=== PATIENT | female | born 1980 | race Caucasian/White ===

== ENCOUNTER → 2016-06-26 | Emergency (ER) | payer BC, OTHER ==
[~2016-06-26] MED LIST: KETOROLAC TROMETHAMINE 30 MG/ML VIAL IV ONE; KETOROLAC TROMETHAMINE 30 MG/ML VIAL ONE; METOCLOPRAMIDE HCL 5 MG/ML VIAL IV ONE; METOCLOPRAMIDE HCL 5 MG/ML VIAL ONE; NORMAL SALINE 1,000 ML IV ONE; diphenhydrAMINE HCL 50 MG/ML VIAL IV ONE; diphenhydrAMINE HCL 50 MG/ML VIAL ONE
[2016-06-26 16:42] VITALS: BP 133/92
--- OUTSIDE RECORDS SUMMARY | 2016-06-26 23:05 | XMS REPORT | Continuity of Care Document ---
:1980 Author Organization [facility] ([facility]) Address [address] [place] [address] Phone [phone] Care Team Providers Name Role Phone Ananth Reaves Primary Care Provider [phone] Source Comments This disclosure is being made pursuant to the Care Everywhere program, applicable federal and state laws, and may not contain all informaitonavailable regarding this patient.[facility] ([facility]) Active Allergies and Adverse Reactions No Known Allergies Current Medications Prescription Sig. Disp. Refills Start Date End Date Status levonorgestrel (MIRENA) Use 1 Intra Active 20 mcg/day intrauterine Uterine Device device in your uterus continuous. naproxen sodium 550 mg 12/22/2015 Active tablet topiramate 100 mg tablet 12/23/2015 Active SERTraline 100 mg tablet 12/23/2015 Active QUEtiapine 25 mg tablet 12/23/2015 Active metoPROLol succinate 25 Take 12.5 mg AM 45 tablet 1 02/06/2016 Active mg XL tablet and 25 mg PM. 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 Respiratory Rate 22 04/30/2015 6:50 AM MANAGER MARK[employer] IN[employer]LL[employer] Height 1.575 m (5' 2") 01/18/2016 10:30 AM CDT Weight 126.1 kg (278 lb) 01/18/2016 10:30 AM CDT Body Mass Index 50.83 01/18/2016 10:30 AM CDT Oxygen Saturation 98% 04/30/2015 2:53 PM [employer]NAGER [employer] Plan of Care Health Maintenance Due Date Last Done Comments Hepatitis B Vaccine (1 of 3 - Primary Series) 1980 Tdap Vaccine 01/11/1991 Lipid Disorder Screening 01/11/1998 MMR Vaccine 01/11/1998 Td Vaccine 01/11/1998 Varicella Vaccine (1 of 2 - Adult - No Evidence of 01/11/1998 Immunity) Cervical Cancer Screening 01/11/2010 Influenza Vaccine: Seasonal Completed 01/09/2016 Results from Last 3 Months Not on file
== END ==
LOC: ER 16:27
DX: G43.901 Migraine, unspecified, not intractable, with status migrainosus (principal)

== ENCOUNTER 2016-08-04 04:33 | Emergency (ER) | payer OTHER ==
[2016-08-04 04:48] VITALS: BP 153/98
[2016-08-04] MEDS ORDERED: KETOROLAC TROMETHAMINE 30 MG/ML VIAL IV ONE (05:23)
[2016-08-04] MEDS ORDERED: KETOROLAC TROMETHAMINE 60 MG/2 ML VIAL IM ONE ×2 (05:58→06:16)
[2016-08-04 06:24] LABS: Urine Bilirubin 1 mg/dl (NEGATIVE); Urine Blood Negative /ul (NEGATIVE); Urine Ketone Negative (NEGATIVE); Urine Nitrite Negative (NEGATIVE); Urine Protein Negative (NEGATIVE); Urine Urobilinogen Normal (NORMAL)
--- OUTSIDE RECORDS SUMMARY | 2016-08-04 06:26 | XMS REPORT | Continuity of Care Document ---
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
[2016-08-04 06:44] LABS: Urine Appearance Slightly Cloudy; Urine Bacteria TRACE; Urine Color Dark Yellow; Urine RBC None Seen /hpf (0-5); Urine WBC TRACE /hpf (0-5)
[2016-08-04] MEDS ORDERED: HYDROmorphone HCL 1 MG/ML DISP.SYRIN IM ONE (06:48)
[2016-08-04] MEDS ORDERED: ONDANSETRON HCL/PF 2 MG/ML VIAL IM ONE (06:48)
[2016-08-04] MEDS ORDERED: HYDROmorphone HCL 1 MG/ML DISP.SYRIN ONE (06:51)
[2016-08-04] MEDS ORDERED: ONDANSETRON HCL/PF 2 MG/ML VIAL ONE (06:52)
--- NOTE | 2016-08-04 06:54 | ERNOTE ---
Abdominal HPI - General Chief Complaint: Abdominal Pain Time Seen by Provider: 08/04/16 04:58 Source: patient Exam Limitations: no limitations - Immun/Allergies/Home Medications Immunizatons: IMMUNIZATION HX Immunizations Up to Date Yes History of Influenza Vaccine Yes Hx Pneumococcal Vaccination No Allergies/Adverse Reactions: Allergies Milk Containing Products Adverse Reaction (Mild, Verified 06/26/16 16:43) Vomiting and diarhea. Home Medications: HOME MEDICATIONS HYDROcodone/ACETAMINOPHEN [[place] 5-325 Tablet] 1 each PO QID 07/28/15 [Last Taken Unknown] Levonorgestrel [Mirena] 1 each IY Q365D 07/28/15 [Last Taken Unknown] Metoprolol Succinate 12.5 mg PO AC 07/28/15 [Last Taken Unknown] Metoprolol Succinate 25 mg PO HS 07/28/15 [Last Taken Unknown] Phentermine HCl [Adipex-P] 37.5 mg PO DAILY 07/28/15 [Last Taken Unknown] Topiramate [Topamax] 100 mg PO BID 07/28/15 [Last Taken Unknown] buPROPion HCL [Wellbutrin SR, Zyban] 150 mg PO BID 07/28/15 [Last Taken Unknown] risperiDONE [Risperdal] 1 mg PO HS 07/28/15 [Last Taken Unknown] Phenazopyridine HCl [Pyridium] 200 mg PO TID #10 tablet 08/04/16 [Last Taken Unknown] Sulfamethoxazole/Trimethoprim [Bactrim Ds] 1 tab PO BID #20 tab 08/04/16 [Last Taken Unknown] - History of Present Illness Narrative: severe suprapubic pain and inability to urinate. no fevers or chills. Symptoms began at 1 am and she has taken nothing for pain. No nausea or vomiting reported Review of Systems - Review of Systems Constitutional: Present: no symptoms reported EYE: Present: no symptoms reported ENT: Present: no symptoms reported Respiratory: Present: no symptoms reported Cardiology: Present: no symptoms reported Gastrointestinal/Abdominal: Present: See HPI Genitourinary: Present: See HPI Musculoskeletal: Present: no symptoms reported Skin: Present: no symptoms reported - Patient's Past Medical History Patient History - Medical: Anxiety, Depression, GERD, Migraines, Seizures, UTI'S Patient History - Cardiac/Respiratory: No pertinent hx Patient History - Cancer: No Hx of Cancer Patient History - Surgical Procedures: Other Patient History - Other: None - Family History Mother Family History - Medical: No pertinent hx, History Unknown Family History - Cardiac/Respiratory: No pertinent hx Father Family History - Medical: , No pertinent hx Family History - Cardiac/Respiratory: No pertinent hx, Myocardial Infarction - Social History Living Situations: alone Abuse History: No History of abuse Psych History: Hx of Anxiety, Hx of Depression Smoking Status: Former smoker Have you smoked in the past 12 months: No Do you dip or chew tobacco: No Alcohol Use: none Drug Use: none - Immunizations Immunizations Up to Date: Yes Hx Pneumococcal Vaccination: No History of Influenza Vaccine: Yes Physical Exam - Physical Exam General Appearance: Present: wd/wn, alert, moderate distress - pt is in distress due to suprapubic pain Neck: Present: normal inspection Respiratory: Present: no respiratory distress, normal breath sounds, no accessory muscle use, chest nontender, lungs clear Cardiovascular/Chest: Present: regular rate, rhythm, no murmur, normal peripheral pulses Gastrointestinal/Abdominal: Present: normal bowel sounds, soft, other - tender in the suprapubic region Back Exam: Present: normal inspection Extremity Exam: Present: normal inspection, normal range of motion ED Progress - Results and Orders Patient's Lab Results:: I have reviewed the patient's lab results. - Vital Signs Patient's Vital Signs:: I have reviewed the patient's vital signs. Vital Signs: Vital Signs 08/04/16 04:33 Temperature 36.1 C L Pulse Rate 68 Respiratory 18 Rate Blood Pressure 153/98 O2 Sat by Pulse 98 Oximetry - Progress/Reassessment Chief Complaint: Abdominal Pain Plan - Plan Plan: Will treat for UTI Departure - Departure Clinical Impression: UTI (urinary tract infection) Qualifiers: Urinary tract infection type: acute cystitis Hematuria presence: without hematuria Qualified Code(s): N30.00 - Acute cystitis without hematuria Disposition: Home self-care Condition: Stable Instructions: Dysuria Referrals: Ananth Ledesma MD [Primary Care Provider] - Prescriptions: Phenazopyridine HCl [Pyridium] 200 mg PO TID #10 tablet Sulfamethoxazole/Trimethoprim [Bactrim Ds] 1 tab PO BID #20 tab
[2016-08-04] MEDS ORDERED: HEPARIN SODIUM,PORCINE 10,000 UNITS/ML VIAL ONE (08:21)
[2016-08-04] MEDS ORDERED: LIDOCAINE HCL 1,000 MG/50 ML VIAL ONE (08:21)
== END 2016-08-04 07:22 | disposition home or self-care (01) ==
LOC: ER 04:33
PROC: 3E1K78Z Irrigation of Genitourinary Tract using Irrigating Substance, Via Natural or Artificial Opening (ICD-10-PCS; principal; 2016-08-04)
DX: N30.00 Acute cystitis without hematuria (principal); Z87.440 Personal history of urinary (tract) infections; Z87.891 Personal history of nicotine dependence

== ENCOUNTER 2016-08-05 12:19 | Inpatient (IN) | payer BC, OTHER ==
[2016-08-05] MEDS ORDERED: MORPHINE SULFATE 4 MG/ML SYRG IV ONE ×3 (12:49→16:00)
[2016-08-05] MEDS ORDERED: NORMAL SALINE 1,000 ML IV ONE (12:50)
[2016-08-05] MEDS ORDERED: MORPHINE SULFATE 4 MG/ML SYRG ONE ×3 (12:54→16:05)
--- OUTSIDE RECORDS SUMMARY | 2016-08-05 12:59 | XMS REPORT | Continuity of Care Document ---
:1980 Author Organization [facility] ([facility]) Address [address] [place] [address] Phone [phone] Care Team Providers Name Role Phone Ananth Reaves Primary Care Provider [phone] Source Comments This disclosure is being made pursuant to the Care Everywhere program, applicable federal and state laws, and may not contain all informaitonavailable regarding this patient.[facility] ([facility]) Active Allergies and Adverse Reactions No Known [...] 36.7 C (98.1 F) 04/30/2015 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
[2016-08-05 13:26] LABS: Hematocrit 37.3 % (37.0-47.0); Mean Cell Volume 86.1 fl (78-100); Mean Corpuscular Hemoglobin 27.7 pg (27-31); Mean Corpuscular Hgb Conc 32.2 g/dl (32-36); Mean Platelet Volume 10.8 fl (6.0-9.5); Neutrophil # 10.8 K/mm3 (1.3-6.0); Neutrophil % 78.4 % (42-75.0); Platelet Count 254 K/mm3 (150-450); Red Blood Count 4.33 M/mm3 (4.2-5.4); Red Cell Distribution Width 15.1 % (11.5-14.0); White Blood Count 13.7 K/mm3 (4.0-10.5)
[2016-08-05 13:40] LABS: Albumin * 2.8 gm/dl (3.4-5.0); Anion Gap 15.5 mmol/L (6.8-13.8); BUN/Creatinine Ratio 9.3 (9.0-21.6); Bilirubin, Total 0.5 mg/dL (0.0-1.1); Ca. Corrected For Albumin 8.5 mg/dL (8.4-10.2); Calcium * 7.9 mg/dL (7.9-10.9); Carbon Dioxide 20.9 mmol/L (24-32.6); Potassium 3.4 mmol/L (3.4-4.6); Total Protein 6.7 gm/dL (6.2-8.2)
[2016-08-05] MEDS ORDERED: DIATRIZOATE MEGLUMINE, SODIUM 30 ML BTL PO ONE (13:43)
[2016-08-05 14:08] LABS: Urine Appearance Slightly Cloudy; Urine Color Yellow
[2016-08-05 14:09] LABS: Urine Bilirubin Negative (NEGATIVE); Urine Blood 10 /ul (NEGATIVE); Urine Ketone 15 mg/dL (NEGATIVE); Urine Nitrite Negative (NEGATIVE); Urine Protein 15 mg/dL (NEGATIVE); Urine Specific Gravity 1.015 SP.GR. (1.005-1.010); Urine Urobilinogen Normal (NORMAL)
[2016-08-05 14:11] LABS: Urine Bacteria 4+; Urine RBC 0-5 /hpf (0-5)
[2016-08-05 14:12] LABS: Urine Hyaline Cast 0-5 /LPF
[2016-08-05] MEDS ORDERED: DIATRIZOATE MEGLUMINE, SODIUM 30 ML BTL ONE (14:23)
[2016-08-05] MEDS ORDERED: NORMAL SALINE 1,000 ML IV PRN (17:18)
--- OUTSIDE RECORDS SUMMARY | 2016-08-05 18:42 | XMS REPORT | Continuity of Care Document ---
:1980 Author Organization [facility] ([facility]) Address [address] [place] [address] Phone [phone] Care Team Providers Name Role Phone Ananth Reaves Primary Care Provider [phone] Source Comments This disclosure is being made pursuant to the Care Everywhere program, applicable federal and state laws, and may not contain all informaitonavailable regarding this patient.[facility] ([facility]) Active Allergies and Adverse Reactions [...] 36.7 C (98.1 F) 04/30/2015 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
--- NOTE | 2016-08-05 18:43 | ERNOTE ---
Abdominal HPI - Narrative Date of Service: 08/05/16 - General Chief Complaint: Abdominal Pain Time Seen by Provider: 08/05/16 12:42 Source: patient Exam Limitations: no limitations - Immun/Allergies/Home Medications Immunizatons: IMMUNIZATION HX Immunizations Up to Date Yes History of Influenza Vaccine Yes Hx Pneumococcal Vaccination No Allergies/Adverse Reactions: Allergies Milk Containing Products Adverse Reaction (Mild, Verified 08/05/16 12:30) Vomiting and diarhea. Home Medications: HOME MEDICATIONS HYDROcodone/ACETAMINOPHEN [[place] 5-325 Tablet] 1 each PO QID 07/28/15 [Last Taken Unknown] Levonorgestrel [Mirena] 1 each IY Q365D 07/28/15 [Last Taken Unknown] Metoprolol Succinate 12.5 mg PO AC 07/28/15 [Last Taken Unknown] Metoprolol Succinate 25 mg PO HS 07/28/15 [Last Taken Unknown] Topiramate [Topamax] 100 mg PO BID 07/28/15 [Last Taken Unknown] buPROPion HCL [Wellbutrin SR, Zyban] 150 mg PO BID 07/28/15 [Last Taken Unknown] risperiDONE [Risperdal] 1 mg PO HS 07/28/15 [Last Taken Unknown] Phenazopyridine HCl [Pyridium] 200 mg PO TID #10 tablet 08/04/16 [Last Taken Unknown] - History of Present Illness Narrative: Abdominal pain. Patient was seen here yesterday for low abdominal pain. She has possible Hx of interstitial cystitis and has benefited from bladder instillations. She had one yesterday but has not had any relief. Non-bloody diarrhea noted. Now abdominal pain has moved up to whole abdomen. Severe in nature. Worse with movement. No vomiting. Chills. No CP or SOB. Constant pain. Timing: constant Quality: cramping, sharpness Activities at Onset: none Modifying Factors - (Improves): Present: other - nothing Modifying Factors - (Worsens): Present: movement Associated Symptoms: Absent: headache, vomiting, shortness of breath Prior Treatment: Present: recently seen Review of Systems - Review of Systems Constitutional: Present: chills. Absent: fever Respiratory: Absent: shortness of breath Cardiology: Absent: chest pain Gastrointestinal/Abdominal: Present: See HPI Genitourinary: Present: See HPI Neurological: Absent: headache All Other Systems: All systems neg except as marked - Patient's Past Medical History Patient History - Medical: Anxiety, Depression, GERD, Migraines, Seizures, UTI'S Patient History - Cardiac/Respiratory: No pertinent hx Patient History - Cancer: No Hx of Cancer Patient History - Surgical Procedures: Other Patient History - Other: None - Family History Mother Family History - Medical: No pertinent hx, History Unknown Family History - Cardiac/Respiratory: No pertinent hx Father Family History - Medical: , No pertinent hx Family History - Cardiac/Respiratory: No pertinent hx, Myocardial Infarction - Social History Living Situations: home Abuse History: No History of abuse Psych History: Hx of Anxiety, Hx of Depression Alcohol Use: none Drug Use: none - Immunizations Immunizations Up to Date: Yes Hx Pneumococcal Vaccination: No History of Influenza Vaccine: Yes Physical Exam - Physical Exam General Appearance: Present: alert, no apparent distress Eye Exam: Normal inspection: bilateral, PERRL: bilateral Ears, Nose, Throat: Present: normal ENT inspection Neck: Present: normal inspection Respiratory: Present: no respiratory distress, normal breath sounds, no accessory muscle use, lungs clear Cardiovascular/Chest: Present: tachycardia Gastrointestinal/Abdominal: Present: normal bowel sounds, soft, tenderness, other - Diffuse abdominal tenderness but primarily mid-abdominal. No guarding or rebound. No peritoneal signs Back Exam: Absent: CVA tenderness (R), CVA tenderness (L) Extremity Exam: Present: normal inspection Neurological Exam: Present: alert, no motor/sensory deficits Skin Exam: Present: normal color. Absent: skin rash ED Progress - Results and Orders Patient's Lab Results:: I have reviewed the patient's lab results. - Vital Signs Patient's Vital Signs:: I have reviewed the patient's vital signs. Vital Signs: Vital Signs 08/05/16 08/05/16 08/05/16 12:26 13:08 13:47 Temperature 35.3 C L 37.0 C 36.1 C L Pulse Rate 148 H 110 H 113 H Respiratory 12 13 Rate Blood Pressure 116/80 92/56 102/47 O2 Sat by Pulse 97 99 99 Oximetry 08/05/16 08/05/16 08/05/16 14:21 15:05 15:33 Temperature 37.3 C 37.3 C Pulse Rate 104 H 112 H 120 H Respiratory 13 18 22 H Rate Blood Pressure 115/62 121/74 118/78 O2 Sat by Pulse 100 100 100 Oximetry 08/05/16 17:11 Temperature 37.5 C Pulse Rate 106 H Respiratory 15 Rate Blood Pressure 109/69 O2 Sat by Pulse 96 Oximetry - CT/Ultrasound CT/Ultrasound Narrative: I reviewed CT report - Progress/Reassessment Chief Complaint: Abdominal Pain Progress Note-Subjective: 08/05/16 18:41 Dr Kendrick was in the ED. He spoke with Dr Lin. It was felt she should be admitted for bowel rest and ABx. I spoke with Hospitalist who will admit obs. Pt agreeable. Departure - Departure Clinical Impression: Colitis, Abdominal pain Disposition: [facility] Condition: Stable Referrals: Ananth Ledesma MD [Primary Care Provider] -
[2016-08-05] MEDS ORDERED: ONDANSETRON HCL/PF 2 MG/ML VIAL IV PRN (19:54)
[2016-08-05] MEDS ORDERED: HYDROmorphone HCL 1 MG/ML DISP.SYRIN ONE (20:02)
[2016-08-05] MEDS: HYDROmorphone HCL 1 MG/ML DISP.SYRIN IV PRN (20:05)
[2016-08-05] MEDS: METOPROLOL SUCCINATE 25 MG TABLET.SA PO SCH (21:00)
[2016-08-05] MEDS ORDERED: risperiDONE 1 MG TABLET PO SCH (21:00)
[2016-08-05] MEDS ORDERED: HYDROcodone/ACETAMINOPHEN 1 EACH TABLET PO SCH (21:00)
[2016-08-05] MEDS ORDERED: buPROPion HCL 150 MG TABLET.SA PO SCH (21:00)
[2016-08-05] MEDS: CIPROFLOXACIN IN 5 % DEXTROSE 400 MG/200 ML BAG IV SCH (21:09)
--- NOTE | 2016-08-05 21:37 | HP ---
<Raina Ma - Last Filed: 08/06/16 01:36> Chief Complaint - Chief Complaint Date of Service: 08/05/16 Time of Service: 21:26 Chief Complaint: " Abdominal Pain, Diarrhea". Source of HPI- Pt;reliable, ERP report, Pt's EHR. History of Present Illness: Ms. Toribio Chen is a 36-yr-old [place] pt of Dr. Ledesma with a PMH of: Anemia , Anxiety, Depression, HLD, Migraines, TIM & PTSD. Pt states that for the last 1 month, she has been receiving treatment with bladder instillation for her Chronic Interstitial Cystitis by Dr. Kendrick. Then at 0400am on Friday 08/04, she developed suprapubic pain which went on till about 0900am. She came to the ED to be evaluated and bladder instillation was done per directions from Dr. Kendrick and she was discharged following the treatment. She states that at about 2.00 pm on 08/04, she begun having diarrhea that was accompanied by generalized abdominal pain. This continued about every 3-4 hours until today when she chose to come back to the ED again. She denies fever & chills. She also denies the associated symptoms of nausea/vomiting & bloody stools. She states that eating/or drinking made the Abdominal pain worse. Also any movement or activity worsened the pain and nothing provided any relief. She feels like her abdomen is " swollen & bruised." During evaluation at the ED, the CT of the Abdomen obtained had findings consistent with Colitis. Her WBC was elevated at 13,700 with a Left shift. She will be admitted under observation for supportive cares with Antibiotics, IVF, Pain control and NPO. Per report, Dr. Kendrick spoke with Surgeon (Dr. Parish) and he plans to evaluate pt in am. - Patient's Past Medical History Patient History - Medical: Anemia, Anxiety, Depression, GERD, Migraines, Seizures, UTI'S Patient History - Cardiac/Respiratory: No pertinent hx Patient History - Cancer: No Hx of Cancer Patient History - Surgical Procedures: Other Patient History - Other: None - Family History Mother Family History - Medical: No pertinent hx, History Unknown Family History - Cardiac/Respiratory: No pertinent hx Father Family History - Medical: , No pertinent hx Family History - Cardiac/Respiratory: No pertinent hx, Myocardial Infarction - Social History Living Situations: home Abuse History: No History of abuse Psych History: Hx of Anxiety, Hx of Depression Smoking Status: Former smoker Have you smoked in the past 12 months: No Alcohol Use: none Drug Use: none - Immunizations Immunizations Up to Date: Yes Hx Pneumococcal Vaccination: No History of Influenza Vaccine: Yes Review Of Systems (GEN) - Review of Systems Generalized/Overall Review: Absent: Weakness, Chills, Fever EENTM: Absent: Eye Pain, Blurred Vision Respiratory: Absent: Cough, Shortness of Breath Cardiac: Absent: Chest Pain, Edema, Palpitations Abdominal: Present: Abdominal Pain, Diarrhea. Absent: Nausea, Vomiting, Hematemesis, Constipation, Bright blood from rectum Genitourinary: Present: Urgency, Frequency, Dysuria Musculoskeletal: Absent: Joint Pain, Back Pain, Joint Swelling Neurological: Present: Depressed. Absent: Headache, Anxiety, Weakness Skin: Absent: Dryness, Lesions, Bruising Endocrine: Absent: Intolerance to Cold, Intolerance to Heat Misc: All systems neg except as marked Immunizations: IMMUNIZATION HX Immunizations Up to Date Yes History of Influenza Vaccine Yes Hx Pneumococcal Vaccination No Allergies/Adverse Reactions: Allergies Allergy/AdvReac Type Severity Reaction Status Date / Time Milk Containing Products AdvReac Mild Vomiting Verified 08/05/16 21:11 Home Medications: HOME MEDICATIONS Levonorgestrel [Mirena] 1 each IY [id number] 07/28/15 [Last Taken Unknown] Metoprolol Succinate 12.5 mg PO QAM 07/28/15 [Last Taken Unknown] Metoprolol Succinate 25 mg PO HS 07/28/15 [Last Taken Unknown] Topiramate [Topamax] 100 mg PO BID 07/28/15 [Last Taken Unknown] Naproxen [Naprosyn] 550 mg PO BID 08/05/16 [Last Taken Unknown] Phentermine HCl [Adipex-P] 37.5 mg PO DAILY 08/05/16 [Last Taken Unknown] QUEtiapine FUMARATE [Seroquel] 25 mg PO HS 08/05/16 [Last Taken Unknown] Sertraline HCl [Zoloft] 100 mg PO DAILY 08/05/16 [Last Taken Unknown] Exam - Exam Vital Signs: Vital Signs - Last Taken Temp 37.3 C 08/05/16 21:01 Pulse 112 H 08/05/16 21:01 Resp 18 08/05/16 21:01 BP 150/79 08/05/16 21:01 Pulse Ox 97 08/05/16 21:01 Constitutional: Present: Alert, Oriented x3, Cooperative, No distress ENT Exam: Present: normal ENT inspection, hearing grossly normal. Absent: nasal drainage, pharyngeal erythema Eye Exam: bilateral eye: normal inspection, PERRL Neck: Present: full range of motion, supple, normal inspection Back Exam: Present: normal inspection, no CVA tenderness Breasts: Present: Exam deferred Respiratory: Present: lungs clear, no accessory muscle use Cardiovascular/Chest: Present: normal peripheral pulses, regular rate, rhythm, no chest tenderness, no edema, no murmur Abdomen: Present: Normal bowel sounds, tender - LLQ, guarding /Rectal: Present: Exam deferred Extremity: Present: normal range of motion, non-tender Skin Exam: Present: warm/dry, no cyanosis Lymphatic: Present: no adenopathy Neurologic: Present: alert, normal mood/affect, oriented x 3 Appearance: Present: appropriate appearance, appropriate insight Eye contact: Present: cooperative, good eye contact, normal speech Thoughts: Present: normal thought pattern, no apparent hallucination Diagnostic Studies: Laboratory Results WBC 13.7 K/mm3 (4.0-10.5) H 08/05/16 13:20 RBC 4.33 M/mm3 (4.2-5.4) 08/05/16 13:20 Hgb 12.0 gm/dL (12.5-16.0) L 08/05/16 13:20 Hct 37.3 % (37.0-47.0) 08/05/16 13:20 MCV 86.1 fl (78-100) 08/05/16 13:20 MCH 27.7 pg (27-31) 08/05/16 13:20 MCHC 32.2 g/dl (32-36) 08/05/16 13:20 RDW 15.1 % (11.5-14.0) H 08/05/16 13:20 Plt Count 254 K/mm3 (150-450) 08/05/16 13:20 MPV 10.8 fl (6.0-9.5) H 08/05/16 13:20 Immature Gran % (Auto) 0.60 % (0.001-0.429) H 08/05/16 13:20 Immature Gran # (Auto) 0.08 K/mm3 (0.000-0.0310) H 08/05/16 13:20 Neutrophils % 78.4 % (42-75.0) H 08/05/16 13:20 Lymphocytes % 12.5 % (20-51) L 08/05/16 13:20 Monocytes % 6.4 % (0.0-9) 08/05/16 13:20 Eosinophils % 1.9 % (0.0-3.0) 08/05/16 13:20 Basophils % 0.2 % (0.0-1.0) 08/05/16 13:20 Nucleated RBC % 0.0 k/mm3 (0-1) 08/05/16 13:20 Neutrophils # 10.8 K/mm3 (1.3-6.0) H 08/05/16 13:20 Lymphocytes # 1.7 k/mm3 (1.5-3.5) 08/05/16 13:20 Monocytes # 0.9 k/mm3 (0.0-1.0) 08/05/16 13:20 Eosinophils # 0.3 k/mm3 (0.0-0.7) 08/05/16 13:20 Absolute Basophils 0.0 k/mm3 (0.0-0.1) 08/05/16 13:20 Sodium 142 mmol/L (132-142) 08/05/16 13:20 Plasma Sodium 143 mmol/L (130-142) H 08/05/16 13:20 Potassium 3.4 mmol/L (3.4-4.6) 08/05/16 13:20 Chloride 109 mmol/L (97-106) H 08/05/16 13:20 Carbon Dioxide 20.9 mmol/L (24-32.6) L 08/05/16 13:20 Anion Gap 15.5 mmol/L (6.8-13.8) H 08/05/16 13:20 BUN 8 mg/dL (3-23) 08/05/16 13:20 Creatinine 0.86 mg/dL (0.4-1.4) 08/05/16 13:20 Est GFR (Non-Af Amer) 79 mL/min (60-130) 08/05/16 13:20 BUN/Creatinine Ratio 9.3 (9.0-21.6) 08/05/16 13:20 Random Glucose 141 mg/dL (70-110) H 08/05/16 13:20 Lactic Acid, Venous 1.0 mmol/L (0.4-1.9) 08/05/16 13:20 Calcium 7.9 mg/dL (7.9-10.9) 08/05/16 13:20 Calcium Adj for Albumin 8.5 mg/dL (8.4-10.2) 08/05/16 13:20 Total Bilirubin 0.5 mg/dL (0.0-1.1) 08/05/16 13:20 AST 12 U/L (0-48) 08/05/16 13:20 ALT 19 U/L (19-67) 08/05/16 13:20 Alkaline Phosphatase 59 U/L (50-170) 08/05/16 13:20 Total Protein 6.7 gm/dL (6.2-8.2) 08/05/16 13:20 Albumin 2.8 gm/dl (3.4-5.0) L 08/05/16 13:20 Lipase 82 U/L (73-393) 08/05/16 13:20 Serum HCG, Qual Negative (NEGATIVE) 08/05/16 13:20 Urine Color Yellow 08/05/16 13:47 Urine Appearance Slightly cloudy 08/05/16 13:47 Urine pH 6.0 pH (5.0-7.0) 08/05/16 13:47 Ur Specific [place] 1.015 SP.GR. (1.005-1.010) 08/05/16 13:47 Urine Protein 15 mg/dL (NEGATIVE) H 08/05/16 13:47 Urine Glucose (UA) Negative mg/dL (NEGATIVE) 08/05/16 13:47 Urine Ketones 15 mg/dL (NEGATIVE) 08/05/16 13:47 Urine Blood 10 /ul (NEGATIVE) H 08/05/16 13:47 Urine Nitrate Negative (NEGATIVE) 08/05/16 13:47 Urine Bilirubin Negative mg/dl (NEGATIVE) 08/05/16 13:47 Prot Sulfosalicylic Acd 1+ mg/dL (0) 08/05/16 13:47 Urine Urobilinogen Normal EU/dl (NORMAL) 08/05/16 13:47 Ur Leukocyte Esterase 100 /ul (NEGATIVE) H 08/05/16 13:47 Urine RBC 0-5 /hpf (0-5) 08/05/16 13:47 Urine WBC 10-25 /hpf (0-5) H 08/05/16 13:47 Ur Epithelial Cells 10-25 /hpf (0-5) H 08/05/16 13:47 Urine Bacteria 4+ (NONE) H 08/05/16 13:47 Hyaline Casts 0-5 /LPF (NONE) H 08/05/16 13:47 Urine Culture Comments Culture to follow 08/05/16 13:47 Assessment/Plan - Assessment/Plan (1) Colitis Assessment: Pt presented with Abdominal Pain/cramping, diarrhea stools. CT of the Abdomen showed bowel wall thickening involving the mid- transerse descending and proximal colon. She had an elevtaed WBC of 13,700 with a left shift. Will cover with Cipro and Flagy for now. Consult surgery in am as she may need Sigmoidoscopy which may help in differentiation from idiopathic, infectious or inflammation colitis. Will provide supportive cares by Keeping NPO, Analgesics, Antiemetics and IVF hydration. Monitor CBC in am. Problem: Acute (2) Anxiety Assessment: Stable- On Zoloft. Problem: Chronic (3) Chronic interstitial cystitis Problem: Chronic (4) Depression Assessment: Stable- Seroquel. Problem: Chronic (5) Sleep apnea Assessment: Continue with CPAP. Problem: Chronic <Ananth Ledesma - Last Filed: 08/06/16 11:55> Immunizations: IMMUNIZATION HX Immunizations Up to Date Yes History of Influenza Vaccine Yes Hx Pneumococcal Vaccination No Exam - Exam Vital Signs: Vital Signs - Last Taken Temp 36.5 C 08/06/16 11:25 Pulse 98 08/06/16 11:25 Resp 18 08/06/16 11:25 BP 90/51 08/06/16 11:25 Pulse Ox 95 08/06/16 11:25 Diagnostic Studies: Abnormal Lab Results 08/06/16 08/06/16 Range/Units 04:50 04:50 WBC 14.9 H (4.0-10.5) K/mm3 RBC 4.08 L (4.2-5.4) M/mm3 Hgb 11.2 L (12.5-16.0) gm/dL Hct 35.0 L (37.0-47.0) % RDW 15.1 H (11.5-14.0) % MPV 11.4 H (6.0-9.5) fl Immature Gran % (Auto) 0.50 H (0.001-0.429) % Immature Gran # (Auto) 0.07 H (0.000-0.0310) K/mm3 Neutrophils % 77.6 H (42-75.0) % Lymphocytes % 13.8 L (20-51) % Neutrophils # 11.6 H (1.3-6.0) K/mm3 Chloride 108 H (97-106) mmol/L Carbon Dioxide 20.6 L (24-32.6) mmol/L Anion Gap 15.9 H (6.8-13.8) mmol/L Random Glucose 116 H (70-110) mg/dL Laboratory Results WBC 14.9 K/mm3 (4.0-10.5) H 08/06/16 04:50 RBC 4.08 M/mm3 (4.2-5.4) L 08/06/16 04:50 Hgb 11.2 gm/dL (12.5-16.0) L 08/06/16 04:50 Hct 35.0 % (37.0-47.0) L 08/06/16 04:50 MCV 85.8 fl (78-100) 08/06/16 04:50 MCH 27.5 pg (27-31) 08/06/16 04:50 MCHC 32.0 g/dl (32-36) 08/06/16 04:50 RDW 15.1 % (11.5-14.0) H 08/06/16 04:50 Plt Count 263 K/mm3 (150-450) 08/06/16 04:50 MPV 11.4 fl (6.0-9.5) H 08/06/16 04:50 Immature Gran % (Auto) 0.50 % (0.001-0.429) H 08/06/16 04:50 Immature Gran # (Auto) 0.07 K/mm3 (0.000-0.0310) H 08/06/16 04:50 Neutrophils % 77.6 % (42-75.0) H 08/06/16 04:50 Lymphocytes % 13.8 % (20-51) L 08/06/16 04:50 Monocytes % 6.7 % (0.0-9) 08/06/16 04:50 Eosinophils % 1.1 % (0.0-3.0) 08/06/16 04:50 Basophils % 0.3 % (0.0-1.0) 08/06/16 04:50 Nucleated RBC % 0.0 k/mm3 (0-1) 08/06/16 04:50 Neutrophils # 11.6 K/mm3 (1.3-6.0) H 08/06/16 04:50 Lymphocytes # 2.1 k/mm3 (1.5-3.5) 08/06/16 04:50 Monocytes # 1.0 k/mm3 (0.0-1.0) 08/06/16 04:50 Eosinophils # 0.2 k/mm3 (0.0-0.7) 08/06/16 04:50 Absolute Basophils 0.0 k/mm3 (0.0-0.1) 08/06/16 04:50 Sodium 141 mmol/L (132-142) 08/06/16 04:50 Plasma Sodium 141 mmol/L (130-142) 08/06/16 04:50 Potassium 3.5 mmol/L (3.4-4.6) 08/06/16 04:50 Chloride 108 mmol/L (97-106) H 08/06/16 04:50 Carbon Dioxide 20.6 mmol/L (24-32.6) L 08/06/16 04:50 Anion Gap 15.9 mmol/L (6.8-13.8) H 08/06/16 04:50 BUN 6 mg/dL (3-23) 08/06/16 04:50 Creatinine 0.63 mg/dL (0.4-1.4) 08/06/16 04:50 Est GFR (Non-Af Amer) 114 mL/min (60-130) D 08/06/16 04:50 BUN/Creatinine Ratio 9.5 (9.0-21.6) 08/06/16 04:50 Random Glucose 116 mg/dL (70-110) H 08/06/16 04:50 Lactic Acid, Venous 1.0 mmol/L (0.4-1.9) 08/05/16 13:20 Calcium 8.1 mg/dL (7.9-10.9) 08/06/16 04:50 Calcium Adj for Albumin 8.5 mg/dL (8.4-10.2) 08/05/16 13:20 Total Bilirubin 0.5 mg/dL (0.0-1.1) 08/05/16 13:20 AST 12 U/L (0-48) 08/05/16 13:20 ALT 19 U/L (19-67) 08/05/16 13:20 Alkaline Phosphatase 59 U/L (50-170) 08/05/16 13:20 Total Protein 6.7 gm/dL (6.2-8.2) 08/05/16 13:20 Albumin 2.8 gm/dl (3.4-5.0) L 08/05/16 13:20 Lipase 82 U/L (73-393) 08/05/16 13:20 Serum HCG, Qual Negative (NEGATIVE) 08/05/16 13:20 Urine Color Yellow 08/05/16 13:47 Urine Appearance Slightly cloudy 08/05/16 13:47 Urine pH 6.0 pH (5.0-7.0) 08/05/16 13:47 Ur Specific [place] 1.015 SP.GR. (1.005-1.010) 08/05/16 13:47 Urine Protein 15 mg/dL (NEGATIVE) H 08/05/16 13:47 Urine Glucose (UA) Negative mg/dL (NEGATIVE) 08/05/16 13:47 Urine Ketones 15 mg/dL (NEGATIVE) 08/05/16 13:47 Urine Blood 10 /ul (NEGATIVE) H 08/05/16 13:47 Urine Nitrate Negative (NEGATIVE) 08/05/16 13:47 Urine Bilirubin Negative mg/dl (NEGATIVE) 08/05/16 13:47 Prot Sulfosalicylic Acd 1+ mg/dL (0) 08/05/16 13:47 Urine Urobilinogen Normal EU/dl (NORMAL) 08/05/16 13:47 Ur Leukocyte Esterase 100 /ul (NEGATIVE) H 08/05/16 13:47 Urine RBC 0-5 /hpf (0-5) 08/05/16 13:47 Urine WBC 10-25 /hpf (0-5) H 08/05/16 13:47 Ur Epithelial Cells 10-25 /hpf (0-5) H 08/05/16 13:47 Urine Bacteria 4+ (NONE) H 08/05/16 13:47 Hyaline Casts 0-5 /LPF (NONE) H 08/05/16 13:47 Urine Culture Comments Culture to follow 08/05/16 13:47 Assessment/Plan - Narrative Narrative: Record reviewed. patient examined. I directly supervised all of our nurse practitioner hospitalist's care for this patient. Dr. Parish is out of town, so I will consult instead our covering general surgeon. We will continue antibiotics and keep the patient NPO for the time being. - Assessment/Plan (1) Leukocytosis Problem: Acute Qualifiers: Leukocytosis type: unspecified Qualified Code(s): D72.829 - Elevated white blood cell count, unspecified (2) Failure of outpatient treatment Problem: Acute (3) Colitis Problem: Acute (4) Chronic interstitial cystitis Problem: Chronic (5) Depression Problem: Chronic (6) Sleep apnea Problem: Chronic
[2016-08-05] MEDS: TOPIRAMATE 50 MG TABLET PO SCH (22:10)
[2016-08-05] MEDS: metroNIDAZOLE/SODIUM CHLORIDE 500 MG/100 ML BAG IV SCH (23:01)
[2016-08-06 05:40] LABS: Hemoglobin 11.2 gm/dL (12.5-16.0); Mean Cell Volume 85.8 fl (78-100); Mean Corpuscular Hemoglobin 27.5 pg (27-31); Mean Platelet Volume 11.4 fl (6.0-9.5); Neutrophil # 11.6 K/mm3 (1.3-6.0); Neutrophil % 77.6 % (42-75.0); Platelet Count 263 K/mm3 (150-450); Red Blood Count 4.08 M/mm3 (4.2-5.4); Red Cell Distribution Width 15.1 % (11.5-14.0); White Blood Count 14.9 K/mm3 (4.0-10.5)
[2016-08-06] MEDS: metroNIDAZOLE/SODIUM CHLORIDE 500 MG/100 ML BAG IV SCH ×3 (05:52→22:01)
[2016-08-06 06:14] LABS: Anion Gap 15.9 mmol/L (6.8-13.8); BUN/Creatinine Ratio 9.5 (9.0-21.6); Blood Urea Nitrogen 6 mg/dL (3-23); Calcium * 8.1 mg/dL (7.9-10.9); Carbon Dioxide 20.6 mmol/L (24-32.6); Chloride 108 mmol/L (97-106); Glucose * 116 mg/dL (70-110); Potassium 3.5 mmol/L (3.4-4.6); Sodium 141 mmol/L (132-142)
[2016-08-06] MEDS: METOPROLOL SUCCINATE 25 MG TABLET.SA PO SCH ×4 (07:28→20:30)
[2016-08-06] MEDS: HYDROmorphone HCL 1 MG/ML DISP.SYRIN IV PRN (07:28)
[2016-08-06] MEDS ORDERED: LEVONORGESTREL IY SCH (07:30)
[2016-08-06] MEDS ORDERED: Lytes/Yerba Santa 240 APPL BTL MM PRN (07:51)
[2016-08-06] MEDS ORDERED: HYDROmorphone HCL 1 MG/ML DISP.SYRIN IV PRN (07:54)
[2016-08-06] MEDS ORDERED: PROMETHAZINE HCL 12.5 MG in DEXTROSE 5 % IN WATER 50 ML IV SCH ×2 (08:00)
--- NOTE | 2016-08-06 08:25 | PN ---
Subjective - Date and Time Seen Date: 08/06/16 Time: 07:50 Subjective Narrative: This is a 36 y/o woman with a history of interstitial cystitis who was admitted last night with acute ascending and transverse colitis of unknown cause, diagnosed by history, physical exam, CAT scan, and supported by her leukocytosis on laboratory evaluation. Her urinalysis, which was obtained by clean catch, appears most like a vaginally contaminated sample. She was placed on IV Cipro, Flagyl, and Rocephin. She was given IV Ondansetron, IV Morphine and IV Dilaudid, none of which have helped. She was made NPO. General surgery , Dr. Víctor Parish, was consulted, but has not yet formally evaluated the patient. This morning, she is clinically no better. She describes her abdominal pain as diffuse and aching. It is moderate to severe. It does not radiate. She is anorectic. She has had multiple epsiodes of brown watery diarrhea. There has been no blood in her stool. On physical exam, see below, she is tender over her transverse colon, the area of CT abnormality. Her wbc count is elevated more than yesterday. The cause of her colitis is as yet still unknown. Selected Entries 08/05/16 08/05/16 08/05/16 12:26 13:47 14:21 Temperature 35.3 C L 36.1 C L 37.3 C Temperature Temporal Artery Source Scan Pulse Rate 148 H 113 H 104 H Pulse Rhythm Regular Pulse Strength Normal Respiratory 12 13 Rate Respiratory Normal Depth Respiratory Normal Effort Non-Labored Respiratory Normal Pattern Blood Pressure 116/80 102/47 115/62 Blood Pressure Mean Blood Pressure Sitting Position O2 Sat by Pulse 97 99 100 Oximetry Oxygen Delivery Room Air Method 08/05/16 08/05/16 08/05/16 15:05 15:33 17:11 Temperature 37.3 C 37.5 C Temperature Temporal Artery Source Scan Pulse Rate 120 H 106 H Pulse Rhythm Pulse Strength Respiratory 18 22 H 15 Rate Respiratory Depth Respiratory Effort Respiratory Pattern Blood Pressure 121/74 118/78 109/69 Blood Pressure Mean Blood Pressure Position O2 Sat by Pulse 100 100 96 Oximetry Oxygen Delivery Room Air Room Air Method 08/05/16 08/05/16 08/05/16 18:52 21:01 22:14 Temperature 36.1 C L 37.3 C Temperature Temporal Artery Source Scan Pulse Rate 102 H 112 H 106 H Pulse Rhythm Regular Pulse Strength Normal Respiratory 14 18 18 Rate Respiratory Normal Depth Respiratory Normal Effort Non-Labored Respiratory Normal Pattern Blood Pressure 126/108 150/79 Blood Pressure 102 Mean Blood Pressure Sitting Position O2 Sat by Pulse 97 97 100 Oximetry Oxygen Delivery Room Air Room Air Method 08/05/16 08/06/16 08/06/16 23:27 02:45 07:04 Temperature 37.1 C 36.5 C 36.9 C Temperature Temporal Artery Oral Axillary Source Scan Pulse Rate 88 92 90 Pulse Rhythm Regular Regular Pulse Strength Normal Normal Respiratory 14 16 16 Rate Respiratory Normal Normal Normal Depth Respiratory Normal Normal Effort Non-Labored Non-Labored Respiratory Normal Normal Pattern Blood Pressure 105/58 110/62 134/74 Blood Pressure 78 Mean Blood Pressure Supine Supine Supine Position O2 Sat by Pulse 100 98 98 Oximetry Oxygen Delivery Room Air Room Air CPAP Method 08/06/16 07:28 Temperature Temperature Source Pulse Rate 90 Pulse Rhythm Pulse Strength Respiratory Rate Respiratory Depth Respiratory Effort Respiratory Pattern Blood Pressure 134/74 Blood Pressure Mean Blood Pressure Position O2 Sat by Pulse Oximetry Oxygen Delivery Method Laboratory Tests 08/05/16 08/05/16 08/05/16 13:20 13:20 13:20 WBC 13.7 H Hgb 12.0 L RDW 15.1 H Plt Count 254 Neutrophils % 78.4 H Lymphocytes % 12.5 L Monocytes % 6.4 Eosinophils % 1.9 Plasma Sodium 143 H Potassium 3.4 Chloride 109 H Carbon Dioxide 20.9 L Anion Gap 15.5 H Lactic Acid, Venous 1.0 Lipase 82 Serum HCG, Qual 08/05/16 08/06/16 08/06/16 13:20 04:50 04:50 WBC 14.9 H Hgb 11.2 L RDW 15.1 H Plt Count 263 Neutrophils % 77.6 H Lymphocytes % 13.8 L Monocytes % 6.7 Eosinophils % 1.1 Plasma Sodium 141 Potassium 3.5 Chloride 108 H Carbon Dioxide 20.6 L Anion Gap 15.9 H Lactic Acid, Venous Lipase Serum HCG, Qual Negative Objective - Review of Systems Generalized/Overall Review: Reports: Diaphoresis, Weight loss EENTM: Reports: No Symptoms Reported Respiratory: Reports: No Symptoms Reported Cardiac: Reports: No Symptoms Reported Abdominal: Reports: Other - see HPI Genitourinary Symptoms: Reports: No Symptoms Reported Musculoskeletal Complaints: Reports: No Symptoms Reported Neurological: Reports: No Symptoms Reported Skin: Reports: No Symptoms Reported Endocrine: Reports: No Symptoms Reported Misc: All systems neg except as marked - Vitals Vitals: Last Vital Signs Selected Entries 08/06/16 08/06/16 07:04 07:28 Temperature 36.9 C Temperature Axillary Source Pulse Rate 90 90 Respiratory 16 Rate Respiratory Normal Depth Blood Pressure 134/74 134/74 Blood Pressure Supine Position O2 Sat by Pulse 98 Oximetry Oxygen Delivery CPAP Method - Abnormal Lab Findings Abnormal Lab Findings: Abnormal Lab Results 08/06/16 08/06/16 Range/Units 04:50 04:50 WBC 14.9 H (4.0-10.5) K/mm3 RBC 4.08 L (4.2-5.4) M/mm3 Hgb 11.2 L (12.5-16.0) gm/dL Hct 35.0 L (37.0-47.0) % RDW 15.1 H (11.5-14.0) % MPV 11.4 H (6.0-9.5) fl Immature Gran % (Auto) 0.50 H (0.001-0.429) % Immature Gran # (Auto) 0.07 H (0.000-0.0310) K/mm3 Neutrophils % 77.6 H (42-75.0) % Lymphocytes % 13.8 L (20-51) % Neutrophils # 11.6 H (1.3-6.0) K/mm3 Chloride 108 H (97-106) mmol/L Carbon Dioxide 20.6 L (24-32.6) mmol/L Anion Gap 15.9 H (6.8-13.8) mmol/L Random Glucose 116 H (70-110) mg/dL - Exam Constitutional: Present: Alert, Oriented x3, Cooperative, Well developed, Mild distress, Morbidly obese ENT Exam: Present: normal ENT inspection, hearing grossly normal Neck: Present: normal inspection Respiratory: Present: normal breath sounds, no respiratory distress Cardiovascular/Chest: Present: regular rate, rhythm, no chest tenderness Abdomen: Present: Normal bowel sounds, soft, nondistended, no rebound tenderness , no hepatospenomegaly, no masses, obese, tender - transverse colon especially Extremity: Present: normal range of motion, non-tender, normal inspection, no pedal edema, no calf tenderness Neurologic: Present: alert, oriented x 3 Appearance: Present: appropriate appearance, appropriate insight, neat, no memory impairment Eye contact: Present: cooperative, good eye contact, normal speech Thoughts: Present: normal thought pattern Assessment/Plan Plan Narrative: NPO. Admit acute. Estimate four days. Surgery consult. IV antibiotics. Change symptom control. IV fluids. Follow labs. - Problems/Diagnosis (1) Leukocytosis Problem: Acute Qualifiers: Leukocytosis type: unspecified Qualified Code(s): D72.829 - Elevated white blood cell count, unspecified (2) Failure of outpatient treatment Problem: Acute (3) Colitis Problem: Acute (4) Chronic interstitial cystitis Problem: Chronic (5) Depression Problem: Chronic (6) Sleep apnea Problem: Chronic
[2016-08-06] MEDS ORDERED: Phentermine Hcl 37.5 MG PO SCH (09:00)
[2016-08-06] MEDS: POTASSIUM CHLORIDE 20 MEQ in DEXTROSE 5%-NORMAL SALINE 990 ML IV SCH ×2 (09:45→22:05)
[2016-08-06] MEDS: KETOROLAC TROMETHAMINE 30 MG/ML VIAL IV SCH ×3 (09:46→20:29)
[2016-08-06] MEDS: CHLORPROMAZINE HCL IV SCH ×3 (09:47→20:31)
[2016-08-06] MEDS: NORMAL SALINE IV SCH ×3 (09:47→20:31)
[2016-08-06] MEDS: TOPIRAMATE 50 MG TABLET PO SCH ×2 (09:53→20:30)
[2016-08-06] MEDS: SERTRALINE HCL 100 MG TABLET PO SCH (09:54)
[2016-08-06] MEDS: CIPROFLOXACIN IN 5 % DEXTROSE 400 MG/200 ML BAG IV SCH ×2 (10:31→20:32)
[2016-08-06 15:54] LABS: Urine Bilirubin 3 mg/dl (NEGATIVE); Urine Blood Negative /ul (NEGATIVE); Urine Ketone Negative (NEGATIVE); Urine Protein >=300 mg/dL (NEGATIVE); Urine Specific Gravity >=1.030 SP.GR. (1.005-1.010); Urine Urobilinogen Normal (NORMAL); Urine pH 5.5 pH (5.0-7.0)
[2016-08-06 16:10] LABS: Urine Appearance Turbid; Urine Bacteria 2+; Urine Coarse Granular Cast 0-5 /LPF; Urine Color Amber; Urine Nitrite Positive (NEGATIVE); Urine RBC None Seen /hpf (0-5); Urine WBC None Seen /hpf (0-5)
[2016-08-06 16:11] LABS: Urine Amorphous Sediment Many - 3+ (NONE-FEW)
--- NOTE | 2016-08-06 18:17 | CONS ---
[facility] - General Date of Service: 08/06/16 Narrative: Asked to see this patient with abdominal pain, diarrhea, CT findings c/w colitis , and a rising WBC. She has empirically been started on cipro/flagyl. She denies bloody stools. Her diarrhea has improved today. She has had only two stools today. But her abdominal pain has not improved. She has had a previous upper and lower endoscopy. She states that polyps were found but was vague about the indications for the procedures. Source: patient, RN/MD, old records Exam Limitations: no limitations - History of Present Illness Allergies/Adverse Reactions: Allergies Milk Containing Products Adverse Reaction (Mild, Verified 08/05/16 21:11) Vomiting and diarhea. Home Medications: Home Medications Medication Instructions Recorded Last Taken Levonorgestrel [Mirena] 1 each IY Q365D 07/28/15 Unknown Metoprolol Succinate 12.5 mg PO QAM 07/28/15 Unknown Metoprolol Succinate 25 mg PO HS 07/28/15 Unknown Topiramate [Topamax] 100 mg PO BID 07/28/15 Unknown Naproxen [Naprosyn] 550 mg PO BID 08/05/16 Unknown Phentermine HCl [Adipex-P] 37.5 mg PO DAILY 08/05/16 Unknown QUEtiapine FUMARATE [Seroquel] 25 mg PO HS 08/05/16 Unknown Sertraline HCl [Zoloft] 100 mg PO DAILY 08/05/16 Unknown - Patient's Past Medical History Patient History - Medical: Anemia, Anxiety, Depression, GERD, Migraines, Seizures, UTI'S Patient History - Cardiac/Respiratory: No pertinent hx Patient History - Cancer: No Hx of Cancer Patient History - Surgical Procedures: Other Patient History - Other: None - Family History Mother Family History - Medical: No pertinent hx, History Unknown Family History - Cardiac/Respiratory: No pertinent hx Father Family History - Medical: , No pertinent hx Family History - Cardiac/Respiratory: No pertinent hx, Myocardial Infarction - Social History Living Situations: home Abuse History: No History of abuse Psych History: Hx of Anxiety, Hx of Depression Smoking Status: Former smoker Have you smoked in the past 12 months: No Alcohol Use: none Drug Use: none - Immunizations Immunizations Up to Date: Yes Hx Pneumococcal Vaccination: No History of Influenza Vaccine: Yes Procedures CONTRAST ARTHROGRAM (07/05/14) DESTRUC-SHOULDER LES NEC (09/29/14) EXCISION OF RIGHT CLAVICLE, OPEN APPROACH (04/29/15) PLAIN RADIOGRAPHY OF RIGHT SHOULDER (01/31/15) RELEASE MEDIAN NERVE, PERCUTANEOUS ENDOSCOPIC APPROACH (08/10/15) RELEASE ULNAR NERVE, OPEN APPROACH (08/10/15) Medications - Medications Current Medications: Current Medications Ciprofloxacin/Dextrose (Cipro) 400 mg in 200 mls @ 200 mls/hr IV Q12H DINORAH PRN Reason: Protocol Stop: 09/04/16 21:01 Last Admin: 08/06/16 10:31 Dose: 200 mls/hr Metronidazole (Flagyl) 500 mg in 100 mls @ 100 mls/hr IV Q8H DINORAH PRN Reason: Protocol Stop: 09/04/16 22:01 Last Admin: 08/06/16 14:15 Dose: 100 mls/hr Potassium Chloride 20 meq/ (Dextrose/Sodium Chloride) 1,000 mls @ 125 mls/hr IV .Q8H DINORAH Stop: 09/05/16 08:01 Last Admin: 08/06/16 09:45 Dose: 125 mls/hr Chlorpromazine HCl 5 mg/ (Sodium Chloride) 50.2 mls @ 100.4 mls/hr IV Q6H DINORAH Stop: 09/05/16 08:31 Last Admin: 08/06/16 15:48 Dose: 100.4 mls/hr Ketorolac Tromethamine (Toradol) 30 mg IV Q6H DINORAH Stop: 08/08/16 02:01 Last Admin: 08/06/16 14:15 Dose: 30 mg Metoprolol Succinate (Toprol Xl) 12.5 mg PO AC DINORAH Stop: 09/05/16 07:01 Last Admin: 08/06/16 17:59 Dose: Not Given Metoprolol Succinate (Toprol Xl) 25 mg PO HS DINORAH Stop: 09/04/16 21:01 Last Admin: 08/05/16 21:00 Dose: Not Given Saliva Substitute (Mouthkote Solution) 1 appl MM Q1H PRN PRN Reason: Dry Mouth Stop: 09/05/16 07:52 Last Admin: 08/06/16 09:54 Dose: 1 appl Sertraline HCl (Zoloft) 100 mg PO DAILY DINORAH Stop: 09/05/16 09:01 Last Admin: 08/06/16 09:54 Dose: 100 mg Topiramate (Topamax) 100 mg PO BID DINORAH Stop: 09/04/16 21:01 Last Admin: 08/06/16 09:53 Dose: 100 mg Review of Systems - Review of Systems Generalized/Overall Review: Present: Weight loss. Absent: Fever EENTM: Present: No Symptoms Reported Respiratory: Present: No Symptoms Reported Cardiac: Present: No Symptoms Reported Abdominal: Present: Abdominal Pain, Diarrhea Genitourinary: Present: No Symptoms Reported Musculoskeletal: Present: No Symptoms Reported Neurological: Present: No Symptoms Reported Skin: Present: No Symptoms Reported Physical Examination - Exam Vital Signs: Vital Signs - Last Taken Temp 36.7 C 08/06/16 14:52 Pulse 81 08/06/16 14:52 Resp 18 08/06/16 14:52 BP 96/54 08/06/16 14:52 Pulse Ox 96 08/06/16 14:52 O2 Oxygen Delivery Method Room Air Constitutional: Present: Alert, Oriented x3, Cooperative, No distress, Morbidly obese ENT Exam: Present: normal ENT inspection Neck: Present: normal inspection Respiratory: Present: no respiratory distress Abdomen: Present: tender - Tender left side of abdomen and over transverse colon. No rebound. No rigidity. Skin Exam: Present: normal color, warm/dry Neurologic: Present: no motor/sensory deficits - Results and Findings: Lab/Microbiology results last 24 hrs: Abnormal/Pending Laboratory Last 24 HRS 08/06/16 08/06/16 08/06/16 15:28 04:50 04:50 WBC 14.9 H RBC 4.08 L Hgb 11.2 L Hct 35.0 L RDW 15.1 H MPV 11.4 H Immature Gran % (Auto) 0.50 H Immature Gran # (Auto) 0.07 H Neutrophils % 77.6 H Lymphocytes % 13.8 L Neutrophils # 11.6 H Chloride 108 H Carbon Dioxide 20.6 L Anion Gap 15.9 H Random Glucose 116 H Urine Protein >=300 H Urine Nitrate Positive H Urine Bilirubin 3 H Amorphous Sediment Many - 3+ H Urine Bacteria 2+ H Coarse Granular Casts 0-5 H - Assessments/Findings (1) Colitis Diagnosis(s): Plan flexible sigmoidoscopy tomorrow. The risks and benefits of the procedure were reviewed fully. She seems to understand, asks appropriate questions, and desires to proceed. Problem: Acute
[2016-08-06] MEDS: QUEtiapine FUMARATE 25 MG TABLET PO SCH (20:30)
[2016-08-07] MEDS: KETOROLAC TROMETHAMINE 30 MG/ML VIAL IV SCH ×2 (01:32→08:41)
[2016-08-07] MEDS: CHLORPROMAZINE HCL IV SCH ×2 (01:32→08:38)
[2016-08-07] MEDS: NORMAL SALINE IV SCH ×2 (01:32→08:38)
[2016-08-07] MEDS: metroNIDAZOLE/SODIUM CHLORIDE 500 MG/100 ML BAG IV SCH ×3 (05:20→21:39)
[2016-08-07 05:51] LABS: Hematocrit 32.9 % (37.0-47.0); Hemoglobin 10.5 gm/dL (12.5-16.0); Mean Cell Volume 87.3 fl (78-100); Mean Corpuscular Hemoglobin 27.9 pg (27-31); Mean Corpuscular Hgb Conc 31.9 g/dl (32-36); Mean Platelet Volume 10.4 fl (6.0-9.5); Neutrophil # 5.8 K/mm3 (1.3-6.0); Neutrophil % 71.7 % (42-75.0); Platelet Count 208 K/mm3 (150-450); Red Blood Count 3.77 M/mm3 (4.2-5.4); Red Cell Distribution Width 14.9 % (11.5-14.0); White Blood Count 8.1 K/mm3 (4.0-10.5)
[2016-08-07 06:08] LABS: Albumin * 2.3 gm/dl (3.4-5.0); Anion Gap 13.9 mmol/L (6.8-13.8); BUN/Creatinine Ratio 8.5 (9.0-21.6); Bilirubin, Total 0.1 mg/dL (0.0-1.1); Ca. Corrected For Albumin 8.9 mg/dL (8.4-10.2); Calcium * 7.9 mg/dL (7.9-10.9); Carbon Dioxide 21.9 mmol/L (24-32.6); Potassium 3.8 mmol/L (3.4-4.6); Total Protein 6.1 gm/dL (6.2-8.2)
[2016-08-07] MEDS: POTASSIUM CHLORIDE 20 MEQ in DEXTROSE 5%-NORMAL SALINE 990 ML IV SCH (08:37)
[2016-08-07] MEDS: TOPIRAMATE 50 MG TABLET PO SCH ×2 (08:42→20:16)
[2016-08-07] MEDS: ENOXAPARIN SODIUM 40 MG/0.4 ML SYRG SC SCH (08:42)
[2016-08-07] MEDS: SERTRALINE HCL 100 MG TABLET PO SCH (08:44)
[2016-08-07] MEDS: METOPROLOL SUCCINATE 25 MG TABLET.SA PO SCH ×2 (08:51→20:16)
[2016-08-07] MEDS: CIPROFLOXACIN IN 5 % DEXTROSE 400 MG/200 ML BAG IV SCH ×2 (10:08→20:15)
[2016-08-07] MEDS ORDERED: chlorproMAZINE HCL 10 MG TABLET PO PRN (13:31)
--- NOTE | 2016-08-07 16:30 | OR ---
Operative Report - Dictated Report Narrative: Date: 08/07/2016 Preop diagnosis: Colitis Postop diagnosis: Colitis, diverticulosis Procedure: Colonoscopy with biopsy x 2 and stool C&S, O&P Staff surgeon: Josh Merrill MD Proctoring surgeon: Rafiq Brock MD Anesthesia: MAC per STONE DRESSER EBL: Minimal Description: After informed consent and appropriate sedation the patient was placed in the left lateral decubitus position. A flexible fiberoptic video colonoscope was introduced and advanced under direction vision without difficulty to 90cm. This was to about the splenic flexure and mid-point of colitis identified by CT. No bleeding was encountered. There was cobble-stoning of the mucosa consistent with a mild to moderate colitis. Two cold biopsies were obtained of this finding. She was noted to have moderate sigmoid diverticulosis. Stool was obtained in a luken trap and sent for C&S and O&P. Scope was slowly withdrawn and no other findings were noted. The patient tolerated the procedure well without apparent complications and was discharged from the endoscopy suite in stable condition.
[2016-08-07] MEDS: SUCRALFATE 1 G/10 ML UDC PO SCH ×2 (17:23→20:15)
--- NOTE | 2016-08-07 17:42 | PN ---
Subjective - Date and Time Seen Date: 08/07/16 Time: 12:15 Subjective Narrative: Good appetite now. Less diarrhea. Less abdominal pain. At the time I saw her this noon, she had just returned from her endoscopy. 08/05/16 08/05/16 08/05/16 12:26 13:47 14:21 Temperature 35.3 C L 36.1 C L 37.3 C Temperature Temporal Artery Source Scan Pulse Rate 148 H 113 H 104 H Pulse Rhythm Regular Pulse Strength Normal Respiratory 12 13 Rate Respiratory Normal Depth Respiratory Normal Effort Non-Labored Respiratory Normal Pattern Blood Pressure 116/80 102/47 115/62 Blood Pressure Mean Blood Pressure Sitting Position O2 Sat by Pulse 97 99 100 Oximetry Oxygen Delivery Room Air Method 08/05/16 08/05/16 08/05/16 15:05 15:33 17:11 Temperature 37.3 C 37.5 C Temperature Temporal Artery Source Scan Pulse Rate 120 H 106 H Pulse Rhythm Pulse Strength Respiratory 18 22 H 15 Rate Respiratory Depth Respiratory Effort Respiratory Pattern Blood Pressure 121/74 118/78 109/69 Blood Pressure Mean Blood Pressure Position O2 Sat by Pulse 100 100 96 Oximetry Oxygen Delivery Room Air Room Air Method 08/05/16 08/05/16 08/05/16 18:52 21:01 22:14 Temperature 36.1 C L 37.3 C Temperature Temporal Artery Source Scan Pulse Rate 102 H 112 H 106 H Pulse Rhythm Regular Pulse Strength Normal Respiratory 14 18 18 Rate Respiratory Normal Depth Respiratory Normal Effort Non-Labored Respiratory Normal Pattern Blood Pressure 126/108 150/79 Blood Pressure 102 Mean Blood Pressure Sitting Position O2 Sat by Pulse 97 97 100 Oximetry Oxygen Delivery Room Air Room Air Method 08/05/16 08/06/16 08/06/16 23:27 02:45 07:04 Temperature 37.1 C 36.5 C 36.9 C Temperature Temporal Artery Oral Axillary Source Scan Pulse Rate 88 92 90 Pulse Rhythm Regular Regular Pulse Strength Normal Normal Respiratory 14 16 16 Rate Respiratory Normal Normal Normal Depth Respiratory Normal Normal Effort Non-Labored Non-Labored Respiratory Normal Normal Pattern Blood Pressure 105/58 110/62 134/74 Blood Pressure 78 Mean Blood Pressure Supine Supine Supine Position O2 Sat by Pulse 100 98 98 Oximetry Oxygen Delivery Room Air Room Air CPAP Method 08/06/16 07:28 Temperature Temperature Source Pulse Rate 90 Pulse Rhythm Pulse Strength Respiratory Rate Respiratory Depth Respiratory Effort Respiratory Pattern Blood Pressure 134/74 Blood Pressure Mean Blood Pressure Position O2 Sat by Pulse Oximetry Oxygen Delivery Method Laboratory Tests 08/05/16 08/05/16 08/05/16 13:20 13:20 13:20 WBC 13.7 H Hgb 12.0 L RDW 15.1 H Plt Count 254 Neutrophils % 78.4 H Lymphocytes % 12.5 L Monocytes % 6.4 Eosinophils % 1.9 Plasma Sodium 143 H Potassium 3.4 Chloride 109 H Carbon Dioxide 20.9 L Anion Gap 15.5 H Lactic Acid, Venous 1.0 Lipase 82 Serum HCG, Qual 08/05/16 08/06/16 08/06/16 13:20 04:50 04:50 WBC 14.9 H Hgb 11.2 L RDW 15.1 H Plt Count 263 Neutrophils % 77.6 H Lymphocytes % 13.8 L Monocytes % 6.7 Eosinophils % 1.1 Plasma Sodium 141 Potassium 3.5 Chloride 108 H Carbon Dioxide 20.6 L Anion Gap 15.9 H Lactic Acid, Venous Lipase Serum HCG, Qual Negative Objective - Review of Systems Generalized/Overall Review: Reports: No Symptoms Reported EENTM: Reports: No Symptoms Reported Respiratory: Reports: No Symptoms Reported Cardiac: Reports: No Symptoms Reported Abdominal: Reports: Abdominal Pain, Diarrhea - improved. Genitourinary Symptoms: Reports: No Symptoms Reported Musculoskeletal Complaints: Reports: No Symptoms Reported Neurological: Reports: No Symptoms Reported Skin: Reports: No Symptoms Reported Endocrine: Reports: No Symptoms Reported Misc: All systems neg except as marked - Vitals Vitals: Last Vital Signs Selected Entries 08/07/16 09:35 Temperature 36.7 C Pulse Rate 95 Respiratory 16 Rate Blood Pressure 101/64 O2 Sat by Pulse 95 Oximetry - Abnormal Lab Findings Abnormal Lab Findings: Abnormal Lab Results 08/07/16 08/07/16 Range/Units 05:45 05:45 RBC 3.77 L (4.2-5.4) M/mm3 Hgb 10.5 L (12.5-16.0) gm/dL Hct 32.9 L (37.0-47.0) % MCHC 31.9 L (32-36) g/dl RDW 14.9 H (11.5-14.0) % MPV 10.4 H (6.0-9.5) fl Immature Gran % (Auto) 1.00 H (0.001-0.429) % Immature Gran # (Auto) 0.08 H (0.000-0.0310) K/mm3 Lymphocytes % 17.0 L (20-51) % Lymphocytes # 1.4 L (1.5-3.5) k/mm3 Sodium 143 H (132-142) mmol/L Plasma Sodium 144 H (130-142) mmol/L Chloride 111 H (97-106) mmol/L Carbon Dioxide 21.9 L (24-32.6) mmol/L Anion Gap 13.9 H (6.8-13.8) mmol/L BUN/Creatinine Ratio 8.5 L (9.0-21.6) Random Glucose 146 H (70-110) mg/dL ALT 14 L (19-67) U/L Alkaline Phosphatase 48 L (50-170) U/L Total Protein 6.1 L (6.2-8.2) gm/dL Albumin 2.3 L (3.4-5.0) gm/dl - Exam Constitutional: Present: Alert, Oriented x3, Cooperative, Well developed, No distress, Morbidly obese ENT Exam: Present: normal ENT inspection, hearing grossly normal Neck: Present: normal inspection Respiratory: Present: normal breath sounds, no respiratory distress Cardiovascular/Chest: Present: regular rate, rhythm, no murmur Abdomen: Present: Normal bowel sounds, soft, nondistended, no rebound tenderness , no hepatospenomegaly, no masses, obese, tender - less tenderness Extremity: Present: normal inspection, pedal edema Skin Exam: Present: normal color, warm/dry, no cyanosis Neurologic: Present: alert, oriented x 3 Appearance: Present: appropriate appearance, neat Eye contact: Present: cooperative, good eye contact, normal speech Thoughts: Present: normal thought pattern Assessment/Plan Plan Narrative: Advance diet, continue antibiotics, await path report. - Problems/Diagnosis (1) Leukocytosis Problem: Acute Qualifiers: Leukocytosis type: unspecified Qualified Code(s): D72.829 - Elevated white blood cell count, unspecified (2) Failure of outpatient treatment Problem: Acute (3) Colitis Problem: Acute (4) Chronic interstitial cystitis Problem: Chronic (5) Depression Problem: Chronic (6) Sleep apnea Problem: Chronic (7) Beta hemolytic Streptococcus culture positive Problem: Acute Narrative: Urine culture positive for beta hemolytic strep, final culture pending.
[2016-08-07] MEDS: QUEtiapine FUMARATE 25 MG TABLET PO SCH (20:15)
[2016-08-08] MEDS: POTASSIUM CHLORIDE 20 MEQ in DEXTROSE 5%-NORMAL SALINE 990 ML IV SCH ×2 (03:04→06:32)
[2016-08-08] MEDS: metroNIDAZOLE/SODIUM CHLORIDE 500 MG/100 ML BAG IV SCH (05:14)
[2016-08-08 05:53] LABS: Hematocrit 32.8 % (37.0-47.0); Hemoglobin 10.4 gm/dL (12.5-16.0); Mean Cell Volume 86.5 fl (78-100); Mean Corpuscular Hemoglobin 27.4 pg (27-31); Mean Corpuscular Hgb Conc 31.7 g/dl (32-36); Mean Platelet Volume 11.2 fl (6.0-9.5); Neutrophil # 4.2 K/mm3 (1.3-6.0); Neutrophil % 62.8 % (42-75.0); Platelet Count 244 K/mm3 (150-450); Red Blood Count 3.79 M/mm3 (4.2-5.4); Red Cell Distribution Width 14.6 % (11.5-14.0); White Blood Count 6.7 K/mm3 (4.0-10.5)
[2016-08-08 05:59] LABS: Anion Gap 15.3 mmol/L (6.8-13.8); BUN/Creatinine Ratio 6.1 (9.0-21.6); Calcium * 8.1 mg/dL (7.9-10.9); Carbon Dioxide 22.2 mmol/L (24-32.6); Estimated Creat Clear 97.5; Potassium 3.5 mmol/L (3.4-4.6)
[2016-08-08] MEDS: SUCRALFATE 1 G/10 ML UDC PO SCH (06:38)
[2016-08-08 06:56] VITALS: BP 106/70
[2016-08-08] MEDS: CIPROFLOXACIN IN 5 % DEXTROSE 400 MG/200 ML BAG IV SCH (09:19)
--- NOTE | 2016-08-08 09:19 | DS ---
(1) Leukocytosis Problem: Resolved Qualifiers: Leukocytosis type: unspecified Qualified Code(s): D72.829 - Elevated white blood cell count, unspecified (2) Failure of outpatient treatment Problem: Acute (3) Colitis Problem: Acute (4) Chronic interstitial cystitis Problem: Chronic (5) Depression Problem: Chronic (6) Sleep apnea Problem: Chronic (7) Beta hemolytic Streptococcus culture positive Problem: Acute (8) Vomiting Problem: Acute (9) Normochromic normocytic anemia Problem: Acute Description of Stay: Gradually improved with conservative treatment plus parenteral antibiotics. Pain is now gone. On clear liquids by mouth. Colonoscopy by general surgery showed colitis and diverticulosis. Vomited stomach contents several times last night, not nauseated this morning, and wants to go home regardless today. Colon biopsy reports pending. WBC count has come down to normal. She now displays a normocytic normochromic anemia, which we will pursue as an outpatient. She is growing beta hemolytic strep from her urine, which we are treating and will continue to treat. Procedures Performed: see notes below - Colonoscopy with biopsy x 2 and stool C& S, O&P Discharge Disposition: Home self care Disposition: Home self-care Condition: Good Discharge Activity: Activity as tolerated Discharge Diet: Clear Liquids - Clear liquid diet through Saturday, then bland diet starting Saturday. Pharmacy Buyer provide education regarding bland diet. Referrals: Ananth Ledesma MD [Primary Care Provider] - Consultation Done:: Dr. Josh Merrill, general surgery Problem Oriented Discharge Instructions to Patient/Family: Colitis, Urinary Tract Infection, Adult, [id number], Form - Excuse from Work, School, or Physical Activity Additional Patient Instructions (free text): Followup Dr. Reaves 1 week. CBC and BMP 1 week. Prescriptions (Any new or edited meds): Acetaminophen [Tylenol] 650 mg PO QID PRN #1 tab PRN Reason: Pain Cephalexin Monohydrate [Keflex] 500 mg PO BID #20 cap Ranitidine HCl [Zantac] 300 mg PO HS #30 tab chlorproMAZINE HCL [Thorazine] 10 mg PO Q6H PRN #30 tab PRN Reason: Nausea metroNIDAZOLE [Flagyl] 250 mg PO BID #20 tab Complete Home Medications List: Complete Home Medication List: Levonorgestrel [Mirena] 1 each IY Q365D 07/28/15 Metoprolol Succinate 12.5 mg PO QAM 07/28/15 Metoprolol Succinate 25 mg PO HS 07/28/15 Topiramate [Topamax] 100 mg PO BID 07/28/15 QUEtiapine FUMARATE [Seroquel] 25 mg PO HS 08/05/16 Sertraline HCl [Zoloft] 100 mg PO DAILY 08/05/16 Acetaminophen [Tylenol] 650 mg PO QID PRN #1 tab 08/08/16 Cephalexin Monohydrate [Keflex] 500 mg PO BID #20 cap 08/08/16 Ranitidine HCl [Zantac] 300 mg PO HS #30 tab 08/08/16 chlorproMAZINE HCL [Thorazine] 10 mg PO Q6H PRN #30 tab 08/08/16 metroNIDAZOLE [Flagyl] 250 mg PO BID #20 tab 08/08/16
[2016-08-08] MEDS: METOPROLOL SUCCINATE 25 MG TABLET.SA PO SCH (09:20)
[2016-08-08] MEDS: SERTRALINE HCL 100 MG TABLET PO SCH (09:20)
[2016-08-08] MEDS: TOPIRAMATE 50 MG TABLET PO SCH (09:20)
[2016-08-08] MEDS: ENOXAPARIN SODIUM 40 MG/0.4 ML SYRG SC SCH (09:21)
== END 2016-08-08 11:07 | disposition home or self-care (01) | DRG 392 ==
LOC: ER 12:19 → MS 18:38 → OBSVTOIN 08-06 14:30
PROVIDERS: ADMIT Nurse Practitioner Critical Care Medicine; ATTEND Allergy & Immunology
PROC: 0DBL8ZX Excision of Transverse Colon, Via Natural or Artificial Opening Endoscopic, Diagnostic (ICD-10-PCS; principal; 2016-08-07 13:30)
DX: K52.9 Noninfective gastroenteritis and colitis, unspecified (principal); D72.829 Elevated white blood cell count, unspecified; K57.30 Diverticulosis of large intestine without perforation or abscess without bleeding; N30.10 Interstitial cystitis (chronic) without hematuria; B95.1 Streptococcus, group B, as the cause of diseases classified elsewhere; F41.9 Anxiety disorder, unspecified; F32.9 Major depressive disorder, single episode, unspecified; D64.9 Anemia, unspecified
CPT/HCPCS: 36415; 45380; 74177; 80048; 80053; 81001; 83605; 83690; 84703; 85025; 87040; 87045; 87046; 87086; 87177; 87209; 87493; 87798; 88305; 88341; 88342; 94660; 96365; 96375; 99284; G0378

== ENCOUNTER 2016-09-27 22:11 | Emergency (ER) | payer BC, OTHER ==
--- NOTE | 2016-09-27 23:05 | ERNOTE ---
Upper Extremity HPI - General Extremities Pain Location: forearm: left Time Seen by Provider: 09/27/16 22:42 Source: patient Exam Limitations: no limitations - Immun/Allergies/Home Medications Immunizations: IMMUNIZATION HX Immunizations Up to Date Yes History of Influenza Vaccine Yes Hx Pneumococcal Vaccination No Allergies/Adverse Reactions: Allergies Allergy/AdvReac Type Severity Reaction Status Date / Time Milk Containing Products AdvReac Mild Vomiting Verified 09/27/16 22:26 Home Medications: HOME MEDICATIONS Levonorgestrel [Mirena] 1 each IY Q365D 07/28/15 [Last Taken Unknown] Metoprolol Succinate 12.5 mg PO QAM 07/28/15 [Last Taken Unknown] Metoprolol Succinate 25 mg PO HS 07/28/15 [Last Taken Unknown] Topiramate [Topamax] 100 mg PO BID 07/28/15 [Last Taken Unknown] Acetaminophen [Tylenol] 650 mg PO QID PRN #1 tab 08/08/16 [Last Taken Unknown] Cephalexin Monohydrate [Keflex] 500 mg PO BID #20 cap 08/08/16 [Last Taken Unknown] Ranitidine HCl [Zantac] 300 mg PO HS #30 tab 08/08/16 [Last Taken Unknown] Nabumetone 750 mg PO BID #20 tablet 09/27/16 [Last Taken Unknown] - History of Present Illness Narrative: Pt was in [facility] earlier today for abdominal pain. She had an IV inserted in her left forearm. The IV infiltrated and began causing her pain. She states she notified them that it was hurting but they thought it was ok. After d/c from there the site continued to worsen and she presented here. Occurred: this afternoon Location of Incident: other - Other ED Severity: moderate Review of Systems - Review of Systems Constitutional: Present: no symptoms reported EYE: Present: no symptoms reported ENT: Present: no symptoms reported Respiratory: Absent: shortness of breath Cardiology: Present: no symptoms reported Gastrointestinal/Abdominal: Present: abdominal pain Genitourinary: Present: no symptoms reported Musculoskeletal: Absent: joint pain, joint swelling Skin: Present: See HPI Neurological: Present: no symptoms reported Endocrine: Present: no symptoms reported Hematologic/Lymphatic: Present: no symptoms reported Psych: Present: no symptoms reported - Patient's Past Medical History Patient History - Medical: Anemia, Anxiety, Depression, GERD, Migraines, Seizures, UTI'S Patient History - Cardiac/Respiratory: No pertinent hx Patient History - Cancer: No Hx of Cancer Patient History - Surgical Procedures: Other Patient History - Other: None - Family History Mother Family History - Medical: No pertinent hx, History Unknown Family History - Cardiac/Respiratory: No pertinent hx Father Family History - Medical: , No pertinent hx Family History - Cardiac/Respiratory: No pertinent hx, Myocardial Infarction - Social History Living Situations: alone Abuse History: No History of abuse Psych History: Hx of Anxiety, Hx of Depression Smoking Status: Former smoker Alcohol Use: none Drug Use: none - Immunizations Immunizations Up to Date: Yes Hx Pneumococcal Vaccination: No History of Influenza Vaccine: Yes Physical Exam - Physical Exam General Appearance: Present: wd/wn, alert, mild distress Eye Exam: Normal inspection: bilateral, PERRL: bilateral Neck: Present: normal inspection, full range of motion Respiratory: Present: no respiratory distress, no accessory muscle use Peripheral Pulses: N=norm/S=strong/W=weak/B=bound/A=absent: Radial (L): Normal Neurological Exam: Present: alert, oriented, no motor/sensory deficits Skin Exam: Present: other - small hematoma on the left forearm associated with what appears to be a previous IV site, mildly tender, mildly indurated no erythema ED Progress - Vital Signs Vital Signs: Vital Signs 09/27/16 22:18 Temperature 36.7 C Pulse Rate 95 Respiratory 16 Rate Blood Pressure 148/104 O2 Sat by Pulse 97 Oximetry - Progress/Reassessment Chief Complaint: Upper Extremity Injury/Problem Progress Note-Subjective: 09/27/16 23:20 I double checked with 2 references to assure that there was no specific treatment for the two medications she was getting through the IV that infiltrated. No specific extravasation measures were listed for either fentanyl or ondansetron. Discussed alternating warm and cold packs with the patient. Departure Clinical Impression: Extravasation injury - Departure Disposition: Home Follow Up Needed Condition: Fair Additional Instructions: Take prescribed medication as directed. alternating warm and cold may help, leaving 20-30 minutes in between them. See your regular doctor if not improving Referrals: Ananth Ledesma MD [Primary Care Provider] - Prescriptions: Nabumetone 750 mg PO BID #20 tablet
[2016-09-27] MEDS ORDERED: KETOROLAC TROMETHAMINE 60 MG/2 ML VIAL IM ONE ×2 (23:16→23:18)
[2016-09-27 23:29] VITALS: BP 129/72
== END 2016-09-27 23:27 | disposition home or self-care (01) ==
LOC: ER 22:11
DX: T80.818A Extravasation of other vesicant agent, initial encounter (principal); M79.632 Pain in left forearm; Z87.440 Personal history of urinary (tract) infections; Z87.891 Personal history of nicotine dependence; R56.9 Unspecified convulsions; K21.9 Gastro-esophageal reflux disease without esophagitis

== ENCOUNTER 2016-12-31 09:01 | Day surgery (SDC) | payer BC, OTHER ==
[~2016-12-31 09:01] MED LIST changes: -KETOROLAC TROMETHAMINE 30 MG/ML VIAL IV ONE; -KETOROLAC TROMETHAMINE 30 MG/ML VIAL ONE; -METOCLOPRAMIDE HCL 5 MG/ML VIAL IV ONE; -METOCLOPRAMIDE HCL 5 MG/ML VIAL ONE; -NORMAL SALINE 1,000 ML IV ONE; +RINGER'S SOLUTION,LACTATED 1,000 ML IV PRN; -diphenhydrAMINE HCL 50 MG/ML VIAL IV ONE; -diphenhydrAMINE HCL 50 MG/ML VIAL ONE
[2016-12-31] MEDS ORDERED: RINGER'S SOLUTION,LACTATED 1,000 ML IV ONE ×2 (09:40→09:50)
[2016-12-31] MEDS ORDERED: RINGER'S SOLUTION,LACTATED 1,000 ML IV PRN (10:19)
[2016-12-31 11:36] VITALS: BP 112/87
--- NOTE | 2016-12-31 18:13 | OR ---
Operative Report - Dictated Report Narrative: OPERATIVE REPORT DATE OF OPERATION: 12/31/16 PREOPERATIVE DIAGNOSIS: History of colitis. Abdominal pain POSTOPERATIVE DIAGNOSIS: Normal colonoscopy to the cecum. Diverticulosis. ( Pathology from random biopsies pending) OPERATION: Colonoscopy with random colon biopsies SURGEON: Nataly Brock MD ANESTHESIA: RUFUS Elena CRNA INDICATIONS FOR PROCEDURE: The patient is a 36-year-old female referred by Dr. Courtney Lilly. She has chronic abdominal pain. She has had colitis on previous colonoscopy where active disease was demonstrated. A subsequent colonoscopy with random biopsies was within normal limits. She continues to have abdominal discomfort and a recent CT scan suggested bowel wall thickening. FINDINGS: Grossly normal colonoscopy to the cecum. Capacious colon with thickened folds when decompressed but no gross mucosal disease appreciated. ( Pathology on random biopsies pending) NARRATIVE OF PROCEDURE: The patient was identified in the holding area, and prior to the administration of anesthetic, a multidisciplinary timeout was observed. With the patient in the left lateral position and after the administration of intravenous sedation, the perineum was inspected. There was no evidence of pilonidal disease or skin breakdown. The external appearance of the anus was normal. Sphincter tone was good. The flexible fiberoptic colonoscope was inserted into the rectum which was insufflated with air. The rectal mucosa and submucosal vascular pattern appeared normal, the prep was seen to be complete. The scope was advanced through the sigmoid colon, up the descending colon, and around the splenic flexure where the triangular haustral architecture of the transverse colon was seen. The scope was advanced across the transverse colon, around the hepatic flexure to the cecum, where the confluence of tenia and the ileocecal valve were identified. The mucosa at this level appeared normal. The scope was then slowly withdrawn in a circular fashion so that all aspects of colonic mucosa were inspected. The colon was capacious in character but relatively normal in course. The haustral architecture appeared well preserved throughout with no evidence of external compression. When the colon was decompressed the folds appeared thickened which may account for the CT scan appearance. The mucosa and submucosal vascular pattern appeared normal, specifically there was no gross evidence to suggest colitis or inflammatory bowel disease and no AV malformations were seen. There were several scattered non-impacted noninflamed diverticular openings in the sigmoid. No polyps were encountered. The scope was gradually withdrawn to the level of the rectum. As much insufflated air as possible was removed. The scope was withdrawn from the patient and the procedure terminated. The patient tolerated the anesthetic and procedure well without complication and was transferred back to the ambulatory surgery area awake and in stable condition. The patient remained stable throughout a period of postoperative observation. She denied abdominal discomfort, was able to tolerate by mouth intake, and was up without assistance. I shared the operative findings with the patient and she was given copies of the photographs which appear in the medical record. She was discharged home with instructions not to engage in hazardous activity today , but may resume normal activity tomorrow, and advance diet as tolerated. She is to continue those medications as listed in the history and physical exam. I made arrangements to contact her with the biopsy reports and will make additional recommendations for treatment and follow-up based upon those results. Reviewed and electronically signed
== END 2016-12-31 09:02 | disposition home or self-care (01) ==
LOC: AMB 09:01
PROVIDERS: ATTEND Surgery
PROC: 0DBE8ZX Excision of Large Intestine, Via Natural or Artificial Opening Endoscopic, Diagnostic (ICD-10-PCS; principal; 2016-12-31 10:05)
DX: Z12.11 Encounter for screening for malignant neoplasm of colon (principal); K52.9 Noninfective gastroenteritis and colitis, unspecified; K57.30 Diverticulosis of large intestine without perforation or abscess without bleeding; E78.5 Hyperlipidemia, unspecified; G47.33 Obstructive sleep apnea (adult) (pediatric); F41.1 Generalized anxiety disorder; F32.9 Major depressive disorder, single episode, unspecified; E66.01 Morbid (severe) obesity due to excess calories; Z68.42 Body mass index [BMI] 45.0-49.9, adult; Z87.891 Personal history of nicotine dependence